=== PATIENT | female | born 1940 | race Caucasian/White ===

== ENCOUNTER 2024-11-06 12:41 | Observation (INO) ==
[2024-11-06 13:22] LABS: BASOPHILS % (AUTO) 0.1 %; EOSINOPHILS # (AUTO) 0.1 10^3/uL (0.0-0.7); EOSINOPHILS % (AUTO) 0.7 %; HCT - HEMATOCRIT 34.2 % (37.0-47.0); HGB - HEMOGLOBIN 10.9 g/dL (12.0-16.0); LYMPHOCYTES # (AUTO) 0.8 10^3/uL (1.5-3.5); LYMPHOCYTES % (AUTO) 10.5 %; MEAN CORPUSCULAR HEMOGLOBIN 26.6 pg (27.0-31.0); MEAN CORPUSCULAR HGB CONC 31.9 g/dL (32.0-36.0); MEAN CORPUSCULAR VOLUME 83.4 fL (81.0-99.0); MEAN PLATELET VOLUME 10.6 fL (7.9-10.8); MONOCYTES # (AUTO) 0.6 10^3/uL (0.0-1.0); MONOCYTES % (AUTO) 8.3 %; NEUTROPHILS # (AUTO) 5.8 10^3/uL (1.5-6.6); NEUTROPHILS % (AUTO) 80.3 %; PLT - PLATELET COUNT 115 10^3/uL (130-450); RED CELL DISTRIBUTION WIDTH 17.9 % (12.0-15.0); WHITE BLOOD COUNT 7.2 x10^3/uL (4.8-10.8)
[2024-11-06 13:30] LABS: MAGNESIUM 2.1 mg/dL (1.7-2.3)
[2024-11-06 13:36] LABS: ALBUMIN 4.6 g/dL (3.2-5.5); ALBUMIN/GLOBULIN RATIO 2.3 (1.0-2.2); BILIRUBIN,TOTAL 0.6 mg/dL (0.2-1.0); CALCIUM 9.7 mg/dL (8.5-10.3); CREATININE 1.4 mg/dL (0.6-1.3); POTASSIUM 5.7 mmol/L (3.5-4.5); TOTAL PROTEIN 6.6 g/dL (6.4-8.9)
--- NOTE | 2024-11-06 14:17 | ED Physician Documentation ---
History of Present Illness Stated complaint Stated Complaint: DIZZY/UNSTEADY/FOGGY Chief complaint Chief Complaint: General History obtained from History obtained from: Patient and Family (daughter is also present) History of Present Illness Timing: Prior to arrival Additonal information Additional information: Patient 83-year-old female with past medical history of restrictive lung disease on 3 L nasal cannula at baseline. History of hypertension, history of CHF newly diagnosed. Patient presents to the emergency department with dizziness fog confusion lightheadedness. She describes symptoms have been going on for the past few days. She had labs drawn 2 days ago in clinic and was notably hyponatremic. Her daughter called the nurse triage line when she realized the results and they were told to come to the ER. Patient was significantly hyponatremic at 123 baseline appears closer to 130 but her most recent labs back in early October were 126. She has no nausea or vomiting or diarrhea with her symptoms. She has no recent falls. She denies any vertigo symptoms but describes some lightheadedness almost presyncopal symptoms. Her Lasix dose was recently increased within the last 2 days. No increased leg swelling, no increased shortness of breath or increase in oxygenation. Meds/Allgy Home Medications Ambulatory Orders Medication Instructions Recorded Confirmed amlodipine 10 mg tablet (Norvasc) 10 mg PO QDAY 10/31/24 atorvastatin 40 mg tablet (Lipitor) 40 mg PO QDAY 09/1210/31/24 calcium carbonate (Antacid 200 mg PO BID 05/24/2410/20 (calcium carbonate)) cholecalciferol (vitamin D3) 25 75 mcg PO QDAY 4 10/31/24 mcg (1,000 unit) capsule doxazosin 8 mg tablet,extended 8 mg PO QAM 05/24/24 release 24 hr doxycycline hyclate 50 mg capsule 50 mg PO QDAY 10/31/24 glucosamine sulfate 500 mg tablet 500 mg PO QDAY 05/2410/31/24 (Glucosamine) levothyroxine 100 mcg capsule 100 mcg PO QDAY 05/24/24 10/31/24 pregabalin 100 mg capsule (Lyrica) 100 mg PO QDAY 09/1210/31/24 pregabalin 150 mg capsule (Lyrica) 150 mg PO BID 05/2410/31/24 valsartan 160 mg tablet (Diovan) 160 mg PO QDAY 10/31/24 empagliflozin 10 mg tablet 10 mg PO QAM 10/14/2410/31 (Jardiance) esomeprazole magnesium 40 mg 40 mg PO QDAY 10/14/24 capsule,delayed release spironolactone 25 mg tablet 25 mg PO QDAY 10/14/2406/15 furosemide 20 mg tablet mg 11/06/24 Allergies Allergies Allergy/AdvReac Type Severity Reaction Status Date / Time epinephrine Allergy chest pain Verified 11/06/24 12:54 Penicillins Allergy Hives Verified 11/06/24 12:54 PFS Active Problems All Active Problems (Updated 11/06/24 @ 14:25 by Citlali Beard PA-C) Acute hyperkalemia (Acute) Acute hyponatremia (Acute) Photophobia (Acute) Visual changes (Acute) Hypertension (Acute) Conjunctivitis (Acute) Acute hyperkalemia (Acute) Dysuria (Acute) Acute kidney injury (Acute) Abnormal laboratory test (Acute) Dysuria (Acute) Iron deficiency anemia (Acute) LLQ pain (Acute) Medical History Medical History Restrictive lung disease Piriformis syndrome of left side Scoliosis (and kyphoscoliosis), idiopathic Surgical History Surgical History H/O bilateral hip replacements Social History Social History Smoking Status: Never smoker Relationship: Do you feel safe in your home environment?: Yes Suffered physical, verbal, emotional, or financial abuse?: No POLST Patient has POLST: No Exam Exam Vital Signs: Vital Signs x48h Temp Pulse Resp BP Pulse Ox O2 Flow Rate 11/06/24 12:54 36.8 C 62 18 191/69 H 96 3 Constitutional normal general appearance HENMT normocephalic, head/scalp atraumatic and hearing grossly normal bilaterally Eyes PERRL, EOMs intact bilaterally and conjunctivae normal Neck/C-Spine visual inspection normal Lymph no lymphadenopathy noted Chest inspection of chest normal Respiratory breath sounds equal bilaterally, normal respiratory effort and clear to auscultation bilaterally Cardiovascular normal heart rate noted, regular rhythm noted, no gallop and no rub Gastrointestinal abdomen normal to inspection Extremities normal to inspection Skin skin color normal Results Vitals Vitals: Vital Signs - 24 hr 11/06/24 12:54 11/06/24 13:18 Temperature 36.8 C Temperature Source Temporal Artery Scan Pulse Rate 62 Respiratory Rate 18 Blood Pressure 191/69 H O2 Saturation 96 O2 Source Nasal cannula If not protocol: Oxygen Flow, liters/minute 3 Pain Intensity 7 0 Oxygen O2 Source Nasal cannula EKG (time done) 1451: EKG releavant findings:: EKG personally interpreted by author of this note. Relevant findings are: Rate: Rate (enter#) (60 bpm) Rhythm: NSR [place]: Normal Intervals: Normal [place] QRS: QRS normal Ischemia: Normal ST segments Compare to prior EKG: Unchanged from prior EKG Computer interpretation: Agree with computer (No t wave peaking) Labs Labs: Laboratory Tests 11/06/24 13:16 WBC 7.2 RBC 4.10 L Hgb 10.9 L Hct 34.2 L MCV 83.4 MCH 26.6 L MCHC 31.9 L RDW 17.9 H Plt Count 115 L MPV 10.6 Neut # (Auto) 5.8 Lymph # (Auto) 0.8 L Hinds # (Auto) 0.6 Eos # (Auto) 0.1 Baso # (Auto) 0.0 Absolute Nucleated RBC 0.00 Nucleated RBC % 0.0 Sodium 123 L Potassium 5.7 H Chloride 82 L Carbon Dioxide 35 H Anion Gap 6.0 BUN 34 H Creatinine 1.4 H Estimated GFR (MDRD) 36 L Glucose 96 Calcium 9.7 Magnesium 2.1 Total Bilirubin 0.6 AST 41 ALT 12 Alkaline Phosphatase 51 B-Natriuretic Peptide 352 H Total Protein 6.6 Albumin 4.6 Globulin 2.0 L Albumin/Globulin Ratio 2.3 H Lipase 158 H PD Medical Decision Making ED course Complexity details: reviewed old records and reviewed results ED course: Patient is a 83-year-old female presenting to the emergency department with dizziness/unsteadiness with history of restrictive lung disease on 3 L nasal cannula at baseline history of CHF, hypertension. Patient presents today with low sodium levels noted on labs from 3 days ago. Patient has increased fatigue brain fog and lightheadedness symptoms. Symptoms have been going on over the past 2 to 3 days. She has Lasix started about 2 days ago that was increased to 2 mg at home. Vitals here in the ED are stable. Patient answering questions apart greatly ANO x 3 no focal deficits systolic murmur on auscultation but clear breath sounds. Labs obtained in triage show persistent hyponatremia at 123 most recent labs showed hyponatremia at 126 slightly slightly hyperkalemic at 5.7. 1.4 no significant ALEXA. She has no T wave peaking on EKG low, dose o rdered and sodium deficit calculated to 453 here in the ED. Normal saline started as she does not appear fluid overloaded despite BNP in the 300s. Discussed case with on-call hospitalist who is agreeable with admission patient will be admitted to the ICU here In the ED Discharge Plan Discharge Patient Disposition: 66 [facility] DC/Xfer Condition: Stable Clinical Impression: Acute hyponatremia, Acute hyperkalemia, Acute kidney injury Prescriptions: No Action esomeprazole magnesium 40 mg capsule,delayed release(DR/EC) 40 mg PO QDAY Jardiance 10 mg tablet 10 mg PO QAM spironolactone 25 mg tablet 25 mg PO QDAY doxazosin 8 mg tablet extended release 24hr 8 mg PO QAM Rx Instructions: must administer with breakfast amlodipine [Norvasc] 10 mg tablet 10 mg PO QDAY valsartan [Diovan] 160 mg tablet 160 mg PO QDAY levothyroxine 100 mcg capsule 100 mcg PO QDAY atorvastatin [Lipitor] 40 mg tablet 40 mg PO QDAY doxycycline hyclate 50 mg capsule 50 mg PO QDAY pregabalin [Lyrica] 100 mg capsule 100 mg PO QDAY pregabalin [Lyrica] 150 mg capsule 150 mg PO BID glucosamine sulfate [Glucosamine] 500 mg tablet 500 mg PO QDAY Rx Instructions: administer with a meal cholecalciferol (vitamin D3) 25 mcg (1,000 unit) capsule 75 mcg PO QDAY calcium carbonate [Antacid (calcium carbonate)] 200 mg calcium (500 mg) tablet,chewable 200 mg PO BID Print Language: Kyrgyz
[2024-11-06] MEDS: SODIUM ZIRCONIUM CYCLOSILICATE 5 GM PACKET PO ONE (14:34)
[2024-11-06] MEDS: SODIUM CHLORIDE 0.9% 1,000 ML IV STA (14:35)
[2024-11-06] MEDS ORDERED: ALBUTEROL NEB 2.5 MG/3 ML INH PRN (15:42)
[2024-11-06] MEDS ORDERED: ACETAMINOPHEN 325 MG TABLET PO PRN (15:42)
[2024-11-06] MEDS ORDERED: ONDANSETRON ODT 4 MG TABLET TL PRN (15:42)
--- NOTE | 2024-11-06 15:47 | HISTORY & PHYSICAL EXAMINATION ---
Chief Complaint Chief Complaint Chief Complaint: low sodium, confusion History of Present Illness Admitted From Admitted From:: ED History Obtained From Records Reviewed: ED History obtained from: Patient, Daughter, Citlali Tanner Kisha SWEET Exam Limitations: None History of Present Illness HPI Comment/Other: Patient is an 83-year-old female with a PMH of CHF, pulmonary hypertension, restrictive lung disease on 3 L nasal cannula at baseline,Chronic peripheral neuropathy, remote history of disordered eating,HTN, hypothyroidism, history of hyponatremia and hyperkalemia Is presented to the ED by her daughter with a chief complaint of low sodium and confusion. Daughter states that she had an outpatient lab draw with her PCP last week in which case her sodium was measured to be 123. She discussed this with the PCP who did not feel that at that time it was immediately necessary for the patient to go to the ER, however she was advised to monitor for symptoms of severe hyponatremia and if there was any concern to bring the patient to the ER. The daughter and patient note some mild confusion that is described as mental fogginess, and occasionally having a difficult time managing multiple tasks at the same time, and occasional incorrect word selection. Patient also adds that due to her history of CHF she has been instructed to monitor her daily weights and in the setting of any weight gain about 3 pounds to increase her usual dose of Lasix 20 mg to 40 mg daily which she did for 2 days last week, followed by 2 more days of Lasix 20 mg at her usual dose, over the last 2 days. Here in the ED, the patient was hemodynamically stable. Did not appear grossly confused or altered. She had hypotension with a BP of 191/69 but otherwise normal vital signs. She was on her usual 3 L oxygen requirement via nasal cannula. Lab work was revealing for a sodium of 123 and a potassium of 5.7. She was given gentle IV fluids in the ED, and urine Sodium, serum osmolality were ordered and pending at the time of admission. Meds/Allgy Home Medications Ambulatory Orders Medication Instructions Recorded Confirmed amlodipine 10 mg tablet (Norvasc) 10 mg PO QDAY 10/31/24 atorvastatin 40 mg tablet (Lipitor) 40 mg PO QDAY 09/1210/31/24 calcium carbonate (Antacid 200 mg PO BID 05/24/2410/20 (calcium carbonate)) cholecalciferol (vitamin D3) 25 75 mcg PO QDAY 4 10/31/24 mcg (1,000 unit) capsule doxazosin 8 mg tablet,extended 8 mg PO QAM 05/24/24 release 24 hr doxycycline hyclate 50 mg capsule 50 mg PO QDAY 10/31/24 glucosamine sulfate 500 mg tablet 500 mg PO QDAY 05/2410/31/24 (Glucosamine) levothyroxine 100 mcg capsule 100 mcg PO QDAY 05/24/24 10/31/24 pregabalin 100 mg capsule (Lyrica) 100 mg PO QDAY 09/1210/31/24 pregabalin 150 mg capsule (Lyrica) 150 mg PO BID 05/2410/31/24 valsartan 160 mg tablet (Diovan) 160 mg PO QDAY 10/31/24 empagliflozin 10 mg tablet 10 mg PO QAM 10/14/2410/31 (Jardiance) esomeprazole magnesium 40 mg 40 mg PO QDAY 10/14/24 capsule,delayed release spironolactone 25 mg tablet 25 mg PO QDAY 10/14/2406/15 furosemide 20 mg tablet mg 11/06/24 Allergies Allergies Allergy/AdvReac Type Severity Reaction Status Date / Time epinephrine Allergy chest pain Verified 11/06/24 12:54 Penicillins Allergy Hives Verified 11/06/24 12:54 PFS Active Problems All Active Problems (Updated 11/06/24 @ 16:36 by Nathan Mendes MD) CHF (congestive heart failure) (Acute) Pulmonary hypertension (Acute) CKD (chronic kidney disease) stage 3, GFR 30-59 ml/min (Acute) GERD (gastroesophageal reflux disease) (Acute) Peripheral neuropathy (Acute) Acute hyperkalemia (Acute) Acute hyponatremia (Acute) Photophobia (Acute) Visual changes (Acute) Hypertension (Acute) Conjunctivitis (Acute) Acute hyperkalemia (Acute) Dysuria (Acute) Acute kidney injury (Acute) Abnormal laboratory test (Acute) Dysuria (Acute) Iron deficiency anemia (Acute) LLQ pain (Acute) Medical History Medical History Restrictive lung disease Piriformis syndrome of left side Scoliosis (and kyphoscoliosis), idiopathic Surgical History Surgical History H/O bilateral hip replacements Social History Social History Smoking Status: Never smoker Relationship: Do you feel safe in your home environment?: Yes Suffered physical, verbal, emotional, or financial abuse?: No POLST Patient has POLST: No Review of Systems Status of ROS: 10 or more systems reviewed and unremarkable except as noted in history and below Exam Exam Vital Signs: Vital Signs x48h Temp Pulse Resp BP Pulse Ox O2 Flow Rate 11/06/24 12:54 36.8 C 62 18 191/69 H 96 3 Constitutional normal general appearance Eyes She is wearing sunglasses due to recent light sensitivity Respiratory breath sounds equal bilaterally, normal respiratory effort and clear to auscultation bilaterally Cardiovascular normal heart rate noted, regular rhythm noted, no gallop and no rub Gastrointestinal abdomen soft to palpation, nondistended and no hernia Extremities normal to inspection Neurology gas station operator II-XII intact, no focal motor deficit noted and speech normal Psychiatry mental status grossly normal, oriented x3, thought process normal, cooperative, affect normal, psychomotor activity normal and memory normal Skin skin color normal Conclusion/Plan Problem List (1) Acute hyperkalemia: Plan: * K is 5.7 * She is on Spironolactone for pulmonary hypertension * She is also on Lasix usually 20 mg daily but she took 40 mg 2 days last week * Given both furosemide and spironolactone is unclear what is driving the hyperkalemia however it is relatively mild may be secondary to hemoconcentration due to dehydration * She has no EKG changes but she was given Lokelma in the ED * I will repeat the BMP now and plan on every 3 hour BMPs due to the hyponatremia so this will also allow us the opportunity to monitor potassium * For now the plan is to resume home medications pending electrolyte changes (2) Acute hyponatremia: Plan: * Her sodium level is 123 which is the same as it was several days ago. * She reports some confusion but the degree of confusion is not consistent with a typical altered mental status due to hyponatremia * She was given IV fluids in the ED * Urine sodium and serum osmolality are pending so I am not sure yet whether this is hypovolemic * As above will repeat BMP now, follow-up on osmolality and urine sodium levels and maintain safe correction levels of 8-10 m/mol in the next 24 hours (3) Photophobia: Plan: * Sub acute * No neck rigidity * No fevers or other meningeal sx * Will monitor (4) Hypertension: Plan: * She has hx of HTN, and BP was 191/69 * Currently trending down to the 150's * I will resume home meds and monitor Qualifiers: Hypertension type: unspecified Qualified Code(s): I10 - Essential (primary) hypertension (5) Restrictive lung disease: Plan: * She is on 3 L nasal cannula at baseline which is her current oxygen requirement * The underlying etiology of this is not exactly clear as the patient herself states this is because of her scoliosis but the daughter states that she was told it is something else by her customer support associate * In any case she seems to be at her respiratory baseline, so we will continue provide supplemental oxygen as needed (6) Peripheral neuropathy: Plan: * Patient endorses bilateral lower extremity neuropathic pain for which she takes Lyrica * She normally takes Lyrica 100 mg in the morning, 150 mg at 3 PM & 150 mg at bedtime * Given her CKD with a GFR of 36 have explained to her that it is possible that the Lyrica she is taking is the reason she is having confusion as well as occasional dizziness and gait disturbance * I have requested with her and she has agreed that we will reduce the dose starting with the afternoon dose to be reduced from 150 mg to 100 mg * We can continue the evening dose at 150 mg, but we may want to consider reducing the morning dose from 100 mg to 75 mg Qualifiers: Peripheral neuropathy type: polyneuropathy, unspecified Qualified Code(s): G62.9 - Polyneuropathy, unspecified (7) GERD (gastroesophageal reflux disease): Plan: * Will resume PPI (8) CKD (chronic kidney disease) stage 3, GFR 30-59 ml/min: Plan: * Creatinine is 1.4 which appears to be consistent with her baseline of 1.3 * GFR is 36 which is somewhat trending down * I have discussed the value of renally dosing medications with the patient and I think she will benefit from a polypharmacy review and consider discussing some medication changes with her PCP * For now we will start with reducing Lyrica dosing and go from there (9) Pulmonary hypertension: Plan: * History of pulmonary hypertension as provided by the daughter but little details are known * She is on spironolactone but presents with hyperkalemia Will monitor electrolytes then decide further with respect to spironolactone dosing (10) CHF (congestive heart failure): Plan: * Patient appears to be euvolemic on exam and has a slightly elevated BNP which is likely exacerbated by her history of CKD * Given her renal function, may be worth trending down on the Lasix * Will monitor labs and resume either reduced or home dose of Lasix in the morning Qualifiers: Heart failure chronicity: unspecified Lab Results Lab results reviewed: Yes 11/06/24 13:16 11/06/24 13:16 Diagnostic Imaging Results Diagnostic Imaging Results: positive Final report reviewed EKG Results EKG Interpreted Independently: Yes
[2024-11-06 16:56] LABS: CREATININE 1.3 mg/dL (0.6-1.3); POTASSIUM 4.6 mmol/L (3.5-4.5)
[2024-11-06] MEDS: SODIUM CHLORIDE FLUSH 0.9% 10 ML SYRINGE IVP SCH (17:38)
[2024-11-06] MEDS: SENNA 8.6 MG TABLET PO SCH (17:38)
[2024-11-06] MEDS ORDERED: PREGABALIN 25 MG CAPSULE PO SCH (18:00)
[2024-11-06] MEDS: ATORVASTATIN 40 MG TABLET PO SCH (18:32)
[2024-11-06] MEDS: LOSARTAN 50 MG TABLET PO SCH (18:32)
[2024-11-06] MEDS: LEVOTHYROXINE 100 MCG TABLET PO SCH (18:32)
[2024-11-06] MEDS: SPIRONOLACTONE 25 MG TABLET PO SCH (18:32)
[2024-11-06] MEDS: amLODIPine 5 MG TABLET PO SCH (18:33)
[2024-11-06] MEDS ORDERED: hydrALAZINE INJ 20 MG/ML VIAL IVP PRN (19:33)
[2024-11-06] MEDS: CALCIUM CARBONATE CHEW 500 MG TABLET PO SCH (21:25)
[2024-11-06] MEDS: SODIUM CHLORIDE FLUSH 0.9% 10 ML SYRINGE IVP PRN (21:26)
[2024-11-06] MEDS: PREGABALIN 25 MG CAPSULE PO SCH (21:26)
[2024-11-06] MEDS: PANTOPRAZOLE 40 MG TABLET PO SCH (21:26)
[2024-11-07 05:03] LABS: BASOPHILS % (AUTO) 0.2 %; EOSINOPHILS # (AUTO) 0.1 10^3/uL (0.0-0.7); EOSINOPHILS % (AUTO) 2.2 %; HCT - HEMATOCRIT 30.4 % (37.0-47.0); HGB - HEMOGLOBIN 9.6 g/dL (12.0-16.0); LYMPHOCYTES # (AUTO) 0.9 10^3/uL (1.5-3.5); LYMPHOCYTES % (AUTO) 23.2 %; MEAN CORPUSCULAR HEMOGLOBIN 26.6 pg (27.0-31.0); MEAN CORPUSCULAR HGB CONC 31.6 g/dL (32.0-36.0); MEAN CORPUSCULAR VOLUME 84.2 fL (81.0-99.0); MEAN PLATELET VOLUME 10.9 fL (7.9-10.8); MONOCYTES # (AUTO) 0.5 10^3/uL (0.0-1.0); NEUTROPHILS # (AUTO) 2.5 10^3/uL (1.5-6.6); NEUTROPHILS % (AUTO) 62.2 %; PLT - PLATELET COUNT 103 10^3/uL (130-450); RED BLOOD COUNT 3.61 10^6/uL (4.20-5.40); RED CELL DISTRIBUTION WIDTH 18.2 % (12.0-15.0)
[2024-11-07 05:17] LABS: CALCIUM 8.9 mg/dL (8.5-10.3); CREATININE 1.2 mg/dL (0.6-1.3); POTASSIUM 4.6 mmol/L (3.5-4.5)
[2024-11-07] MEDS: DOXAZOSIN 4 MG TABLET PO SCH (08:20)
[2024-11-07] MEDS: PREGABALIN 100 MG CAPSULE PO SCH (08:20)
[2024-11-07] MEDS: CHOLECALCIFEROL 25 MCG TABLET PO SCH (08:20)
[2024-11-07] MEDS: FUROSEMIDE 20 MG TABLET PO SCH (08:20)
[2024-11-07] MEDS ORDERED: SENNA 8.6 MG TABLET PO SCH (09:00)
--- NOTE | 2024-11-07 11:15 | PHARMACY PROGRESS NOTE ---
Best Possible Medication History Admit Date and Time: 11/06/24 [id number] Home Medications Medication Instructions Recorded Confirmed Type amlodipine 10 mg tablet (Norvasc) 10 mg PO QDAY 11/07/24 History atorvastatin 40 mg tablet (Lipitor) 40 mg PO QDAY 1209/1211/07/24 History doxycycline hyclate 50 mg capsule 50 mg PO QDAY 11/07/24 History levothyroxine 100 mcg capsule 100 mcg PO QDAY 05/24/24 11/07/24 History pregabalin 100 mg capsule (Lyrica) 100 mg PO .AM 05/2411/07/24 History pregabalin 150 mg capsule (Lyrica) 150 mg PO BID 05/2411/07/24 History empagliflozin 10 mg tablet 10 mg PO QAM 10/14/2411/07 History (Jardiance) esomeprazole magnesium 40 mg 40 mg PO QDAY 10/14/24 History capsule,delayed release spironolactone 25 mg tablet 25 mg PO QDAY 10/14/24 History furosemide 20 mg tablet 20 mg PO ONCE 11/06/2411/07 History erythromycin 5 mg/gram (0.5 %) eye 0.5 inch ophthalmic (eye) HS 11/07/24 11/07/24 History ointment ezetimibe 10 mg tablet 10 mg PO ONCE 11/07/2411/07 History ferrous sulfate 325 mg (65 mg 325 mg PO DAILY 11/07/24 11/07/24 History iron) tablet (Feosol) fluorometholone 0.1 % eye drp 11/07/24 History drops,suspension polyethylene glycol 3350 17 17 g PO DAILY 11/07/24 History gram/dose oral powder valsartan 320 mg tablet 320 mg PO ONCE 11/07/2410/20 History Processed by: Pharmacy Medications reviewed in ED?: No Medication History completed: Yes Patient Interview: Pt unable to participate Secondary Source(s): Written medication list, Other family member and Insurance records [facility] Statement: Per current medication list provided by family member and review of [facility] Rx insurance records. As the person ultimately responsible for medication therapy, providers are able to order a medication from an existing home medication list in [facility] via the "Reconcile Routine" prior to Confirmation of that medication by manager client support. Such practice is discouraged except when the physician, in their clinical judgment, deems that a medical need exists for a medication without regard to previous use.
--- NOTE | 2024-11-07 12:05 | Discharge Summary ---
Discharge Summary Admit Date: 11/06/24 Discharge Date: 11/07/24 Discharging Provider: Dr Nathan Mendes MD Primary Care Provider: KEYSHA RAMSAY Code Status: Do Not Attempt Resuscitation DIAGNOSES Admission Diagnoses: Acute hyperkalemia Acute hyponatremia Photophobia HTN Restrictive lung disease Peripheral neuropathy GERD CKD stage III Pulmonary hypertension CHF Discharge Diagnoses with Status of Each Condition: Acute hyperkalemia - Resolved Acute hyponatremia - Resolved Photophobia - Stable HTN - Stable Restrictive lung disease - Stable Peripheral neuropathy - Stable GERD - Stable CKD stage III - Stable Pulmonary hypertension - Stable CHF - Stable HPI History of Present Illness: hero is an 83-year-old female with a PMH of CHF, pulmonary hypertension, restrictive lung disease on 3 L nasal cannula at baseline,Chronic peripheral neuropathy, remote history of disordered eating,HTN, hypothyroidism, history of hyponatremia and hyperkalemia Is presented to the ED by her daughter with a chief complaint of low sodium and confusion. Daughter states that she had an outpatient lab draw with her PCP last week in which case her sodium was measured to be 123. She discussed this with the PCP who did not feel that at that time it was immediately necessary for the patient to go to the ER, however she was advised to monitor for symptoms of severe hyponatremia and if there was any concern to bring the patient to the ER. The daughter and patient note some mild confusion that is described as mental fogginess, and occasionally having a difficult time managing multiple tasks at the same time, and occasional incorrect word selection. Patient also adds that due to her history of CHF she has been instructed to monitor her daily weights and in the setting of any weight gain about 3 pounds to increase her usual dose of Lasix 20 mg to 40 mg daily which she did for 2 days last week, followed by 2 more days of Lasix 20 mg at her usual dose, over the last 2 days. Here in the ED, the patient was hemodynamically stable. Did not appear grossly confused or altered. She had hypotension with a BP of 191/69 but otherwise normal vital signs. She was on her usual 3 L oxygen requirement via nasal cannula. Lab work was revealing for a sodium of 123 and a potassium of 5.7. She was given gentle IV fluids in the ED, and urine Sodium, serum osmolality were ordered and pending at the time of admission. HOSPITAL COURSE Hospital Course: Patient had a brief overnight hospital stay. After that IV fluids in the ED were administered, no further IV fluids were administered. Urine sodium results came back at 45. Serum osmolality was pending at the time of discharge however her sodium level improved to 128 which is in line with her previous values and likely near her chronic sodium level. In addition, her mental status continued to be alert and oriented x 3 and with no findings suggestive of altered mental status or confusion. Her potassium had also improved to 4.6 on the day of discharge. The patient was essentially back at her baseline with reassuring labs and wanted to go home. I felt it was medically appropriate to discharge her and I did make some recommendations regarding her medications. The mild confusion and dizziness that she has described may be related to her Lyrica. She states she currently takes 100 mg in the morning, followed by 150 mg at 3 PM and 150 mg at nighttime. I explained to her that her GFR has been declining, and on admission was in the 30s. Given her compromised renal function, this Lyrica dosing is likely at least part of the reason she is experiencing the symptoms. I made a recommendation to change her Lyrica to 75 mg in the morning and 100 mg in the afternoon in the evening and she was agreeable to this. If she tolerates this, it would be reasonable to trial even lower doses and use the minimum dose required to manage her peripheral neuropathy symptoms. In addition, given her complex medications for heart failure, she would likely need to discuss this with her poultry vaccinator but for now I suggested decreasing the Diovan From 320 to 160 mg based on the blood pressures that she had during the hospital stay which were within target and at discharge was 150/58. These recommendations were discussed with the patient and with her daughter. Of note, the patient had a Mohs procedure for removal of a lesion on her nose 7 days ago. The daughter explained the difficulty with driving to her food and nutrition services assistant office for the suture removal. I informed them that if they would like to call the food and nutrition services assistant office and if okay with them that we could remove the sutures here so they did not have to go in for that appointment. They called the food and nutrition services assistant office who confirmed it would be okay for us to remove the sutures which our nurse kindly did for her. ALLERGIES Allergies Allergy/AdvReac Type Severity Reaction Status Date / Time epinephrine Allergy chest pain Verified 11/06/24 12:54 Penicillins Allergy Hives Verified 11/06/24 12:54 MEDICATIONS Ambulatory Orders Medication Instructions Recorded Confirmed amlodipine 10 mg tablet (Norvasc) 10 mg PO QDAY 11/07/24 atorvastatin 40 mg tablet (Lipitor) 40 mg PO QDAY 09/1211/07/24 doxycycline hyclate 50 mg capsule 50 mg PO QDAY 11/07/24 levothyroxine 100 mcg capsule 100 mcg PO QDAY 05/24/24 11/07/24 pregabalin 100 mg capsule (Lyrica) 100 mg PO .AM 05/2411/07/24 empagliflozin 10 mg tablet 10 mg PO QAM 10/14/2411/07 (Jardiance) esomeprazole magnesium 40 mg 40 mg PO QDAY 10/14/24 capsule,delayed release spironolactone 25 mg tablet 25 mg PO QDAY 10/14/24 erythromycin 5 mg/gram (0.5 %) eye 0.5 inch ophthalmic (eye) HS 11/07/24 11/07/24 ointment ezetimibe 10 mg tablet 10 mg PO ONCE 11/07/2411/07 ferrous sulfate 325 mg (65 mg 325 mg PO DAILY 11/07/24 11/07/24 iron) tablet (Feosol) fluorometholone 0.1 % eye drp 11/07/24 drops,suspension furosemide 20 mg tablet 20 mg PO DAILY #30 tabs 10/20 03/16 pregabalin 75 mg capsule (Lyrica) 75 mg PO DAILY #30 c aps 11/07/24 valsartan 160 mg tablet (Diovan) 160 mg PO DAILY #30 t abs 11/07/24 PHYSICAL EXAM AT DISCHARGE Vital Signs: Vital Signs x48h Temp Pulse Resp BP Pulse Ox O2 Flow Rate 11/07/24 12:00 36.9 C 61 17 150/58 H 91 L 3 11/07/24 11:00 60 15 125/50 L 97 3 General Appearance: positive No acute distress and Alert Respiratory: positive No respiratory distress and Breath sounds nml; negative Wheezes Cardiovascular: positive Regular rate & rhythm, No murmur and No gallop Abdomen: positive Non-tender, No organomegaly, Nml bowel sounds and No distention Skin: positive Color nml Extremities: positive Nml appearance Neurologic/Psychiatric: positive Oriented x3, CN's nml (2-12) and Motor nml LABS 11/07/24 04:11 11/07/24 04:11 DIAGNOSTIC IMAGING Diagnostic Imaging Results: Final report reviewed TIME SPENT Time Spent in Discharge (Minutes): 65 Discharge Plan Discharge Patient Disposition: 01 Home, Self Care Condition: Stable Medically Cleared Date:: 11/07/24 Prescriptions: New pregabalin [Lyrica] 75 mg capsule 75 mg PO DAILY Qty: 30 0RF valsartan [Diovan] 160 mg tablet 160 mg PO DAILY Qty: 30 0RF Continued erythromycin 5 mg/gram (0.5 %) ointment 0.5 inch ophthalmic (eye) HS Rx Instructions: BOTH EYES fluorometholone 0.1 % drops,suspension Patient Comments: PLACE 1 DROP INTO BOTH EYES 4 TIMES A DAY FOR 2 WEEKS THEN 2 TIMES A DAY FOR 2 WEEKS THEN STOP. ezetimibe 10 mg tablet 10 mg PO ONCE ferrous sulfate [Feosol] 325 mg (65 mg iron) tablet 325 mg PO DAILY esomeprazole magnesium 40 mg capsule,delayed release(DR/EC) 40 mg PO QDAY Jardiance 10 mg tablet 10 mg PO QAM spironolactone 25 mg tablet 25 mg PO QDAY amlodipine [Norvasc] 10 mg tablet 10 mg PO QDAY levothyroxine 100 mcg capsule 100 mcg PO QDAY atorvastatin [Lipitor] 40 mg tablet 40 mg PO QDAY doxycycline hyclate 50 mg capsule 50 mg PO QDAY pregabalin [Lyrica] 100 mg capsule 100 mg PO .AM Changed furosemide 20 mg tablet 20 mg PO DAILY Qty: 30 0RF Discontinued valsartan 320 mg tablet 320 mg PO ONCE polyethylene glycol 3350 17 gram/dose powder 17 g PO DAILY Rx Instructions: TAKE EVERY THIRD NIGHT pregabalin [Lyrica] 150 mg capsule 150 mg PO BID Rx Instructions: TAKING AT 1500 AND 2300 Interventions: Discharge Last Done: 11/07/24 13:17 Discharge Checklist - Nursing Last Done: 11/07/24 13:18 Print Language: Setswana Patient Instructions: Hyponatremia Dc Follow-up Care: CHIDI ESPINO PA [Primary Care Provider] -
[2024-11-07 12:15] VITALS: BP 150/58; TEMP 98.4; O2SAT 91
== END 2024-11-07 13:47 | disposition home or self-care (01) ==
LOC: ED 12:41 → ICU 12:41
PROVIDERS: ADMIT Family Medicine Sports Medicine; ATTEND Family Medicine Sports Medicine
DX: I95.9 Hypotension, unspecified; Z99.81 Dependence on supplemental oxygen; E87.1 Hypo-osmolality and hyponatremia; G62.9 Polyneuropathy, unspecified; I27.20 Pulmonary hypertension, unspecified; N17.9 Acute kidney failure, unspecified; I13.0 Hypertensive heart and chronic kidney disease with heart failure and stage 1 through stage 4 chronic kidney disease, or unspecified chronic kidney disease; J98.4 Other disorders of lung; N18.30 Chronic kidney disease, stage 3 unspecified; E03.9 Hypothyroidism, unspecified; K21.9 Gastro-esophageal reflux disease without esophagitis; I50.9 Heart failure, unspecified; E87.5 Hyperkalemia; H53.149 Visual discomfort, unspecified